=== PATIENT | female | born 1990 ===

== ENCOUNTER 2017-02-02 08:43 | Emergency (ER) | payer OTHER ==
[2017-02-02 08:43] VITALS: BMI 30.2
[2017-02-02 09:03] VITALS: TEMP 97.9
[2017-02-02] MEDS ORDERED: Naproxen 550 mg Tab PO STA (09:26)
[2017-02-02] MEDS ORDERED: Naproxen 550 mg Tab PO ONE (09:29)
--- NOTE | 2017-02-02 10:02 | C.PDOC ---
History Of Present Illness 26 yr old female presents to the ER with complaints of left throat pain for the past 1 day. Patient states she ate chips with spinach dip some chicken pasta at a restaurant yesterday, and immediately afterwards she felt the pain. Patient denies fever, chest pain, SOB, cough, runny nose, hemoptysis, vomiting or neck pain. Time Seen by Provider: 02/02/17 09:04 Chief Complaint (Nursing): ENT Problem History Per: Patient History/Exam Limitations: None Onset/Duration Of Symptoms: Days (1) Current Symptoms Are (Timing): Still Present Symptoms Have Been: Continuous Severity: Mild Past Medical History Reviewed: Historical Data, Nursing Documentation, Vital Signs Vital Signs: Last Vital Signs Temp 97.9 F 02/02/17 09:02 Pulse 74 02/02/17 10:16 Resp 16 02/02/17 10:16 BP 132/81 02/02/17 10:16 Pulse Ox 97 02/02/17 10:50 - Medical History PMH: No Chronic Diseases - [facility] Procedures ARTIF RUPT MEMBRANES NEC (12/24/14) DELIVERY OF PRODUCTS OF CONCEPTION, EXTERNAL APPROACH (04/24/16) INTRODUCE OF OTH THERAP SUBST INTO FEM REPROD, VIA OPENING (04/24/16) MANUAL ASSIST DELIV NEC (12/24/14) REPAIR OB LACERATION NEC (12/24/14) Family History: States: No Known Family Hx - Social History Hx Tobacco Use: No Hx Alcohol Use: No Hx Substance Use: No - Immunization History Hx Tetanus Toxoid Vaccination: No Hx Influenza Vaccination: No Hx Pneumococcal Vaccination: No Review Of Systems Except As Marked, All Systems Reviewed And Found Negative. Constitutional: Negative for: Fever ENT: Positive for: Throat Pain. Negative for: Ear Discharge, Nose Discharge, Nose Congestion Cardiovascular: Negative for: Chest Pain Respiratory: Negative for: Cough, Shortness of Breath Gastrointestinal: Negative for: Nausea, Vomiting Musculoskeletal: Negative for: Neck Pain Skin: Negative for: Rash Physical Exam - Physical Exam Appears: Well, Non-toxic, No Acute Distress, Other (speaking in full sentences) Skin: Normal Color, Warm, Dry, No Rash Nose: Normal Oral Mucosa: Moist Tongue: Normal Appearing, No Swelling Lips: Normal Appearing, No Swelling Throat: No Erythema, No Exudate, No Drooling, Other (<0.5cm area of ecchymosis at the left tonsil. No Swelling, no erythema, no active bleeding, Uvula midline and normal in appearance) Neck: Normal, Normal ROM, Supple Lymphatic: No Adenopathy Chest: Symmetrical, No Tenderness, No Ecchymosis, No Subcutaneous Emphysema Cardiovascular: Rhythm Regular Respiratory: Normal Breath Sounds, No Rales, No Rhonchi, No Stridor, No Wheezing Neurological/Psych: Oriented x3 ED Course And Treatment O2 Sat by Pulse Oximetry: 97 (RA) Pulse Ox Interpretation: Normal Progress Note: PLAN: Rapid Strep swab ordered and reviewed Patient given PO Naproxen PO & Viscous Lidocaine PO. Strep swab (-). Patient was reassured that symptoms are likely due to local trauma/abrasion and not infectious. Rxs for viscous lidocaine, chloraseptic, and Naprosyn given. Patient instructed to follow up with ENT within 1 week, and she understands she should return to ED if symptoms worsen. Reevaluation Time: 10:10 Reassessment Condition: Improved Disposition Counseled Patient/Family Regarding: Studies Performed, Diagnosis, Need For Followup, Rx Given - Disposition Referrals: Berny Mooney MD [Staff Provider] - Cheko Marcos MD [Staff Provider] - Disposition: HOME/ ROUTINE Disposition Time: 10:10 Condition: STABLE Additional Instructions: FOLLOW UP WITH ENT WITHIN 1 WEEK FOR FURTHER EVALUATION USE MEDICATIONS DIRECTED AVOID HARD FOODS FOR THE NEXT 1 WEEK RETURN TO ER IF SYMPTOMS WORSEN Prescriptions: Lidocaine 2% Viscous 15 ml MM Q6 PRN #1 bottle PRN Reason: PAIN Naproxen [Naprosyn Tab] 375 mg PO BID PRN #20 tab PRN Reason: pain Phenol/Glycerin [Chloraseptic [place]] 1 spray MM Q6 PRN #1 spray PRN Reason: THROAT PAIN Instructions: Pharyngitis (ED) Forms: [facility] (Libyan), Work Excuse Print Language: WELSH - POA Present On Arrival: None - Clinical Impression Clinical Impression: Abrasion of tonsil, Throat pain - Scribe Statement The provider has reviewed the documentation as recorded by the Nita Reed Provider Attestation: All medical record entries made by the Rejiibefren were at my direction and personally dictated by me. I have reviewed the chart and agree that the record accurately reflects my personal performance of the history, physical exam, medical decision making, and the department course for this patient. I have also personally directed, reviewed, and agree with the discharge instructions and disposition.
[2017-02-02 10:17] VITALS: BP 132/81; PULSE 74; RESP 16
[2017-02-02 10:46] VITALS: O2SAT 97
== END 2017-02-02 10:16 | disposition home or self-care (01) ==
LOC: C.ER 08:43
DX: S10.11XA Abrasion of throat, initial encounter (principal); X58.XXXA Exposure to other specified factors, initial encounter; R07.0 Pain in throat